=== PATIENT | male | born 1995 | race Caucasian/White ===

== ENCOUNTER 2020-03-29 17:50 | Emergency (ER) | payer OTHER ==
[2020-03-29 18:40] LABS: RED BLOOD COUNT 5.27 M/UL (4.20-5.50); WHITE BLOOD COUNT 13.6 K/UL (4.5-11.0)
[2020-03-29 18:58] LABS: BUN/CREATININE RATIO 12 (0-10)
== END 2020-03-29 19:54 | disposition home or self-care (01) ==
LOC: ER1 17:50
PROVIDERS: Physician Assistant
DX: R11.10 Vomiting, unspecified (principal); F20.9 Schizophrenia, unspecified; F17.210 Nicotine dependence, cigarettes, uncomplicated; Z79.899 Other long term (current) drug therapy
CPT/HCPCS: 80053; 81001; 83690; 85025; 87086; 99284

== ENCOUNTER 2020-10-03 21:57 | Emergency (ER) | payer OTHER ==
[2020-10-03 23:42] LABS: HEMOGLOBIN 16.1 gm/dl (14.0-17.5); RED BLOOD COUNT 5.21 M/UL (4.20-5.50); WHITE BLOOD COUNT 11.9 K/UL (4.5-11.0)
[2020-10-04 00:09] LABS: BUN/CREATININE RATIO 7 (0-10)
== END 2020-10-04 03:20 | disposition short-term general hospital (02) ==
LOC: ER1 21:57
PROVIDERS: Nurse Practitioner
DX: F29 Unspecified psychosis not due to a substance or known physiological condition (principal); Z20.822 Contact with and (suspected) exposure to COVID-19; R45.851 Suicidal ideations; F17.210 Nicotine dependence, cigarettes, uncomplicated
CPT/HCPCS: 71045; 80053; 80307; 85025; 99285; G0480; U0002

== ENCOUNTER 2020-12-17 23:05 | Emergency (ER) | payer OTHER ==
[2020-12-18 01:13] LABS: HEMOGLOBIN 17.5 gm/dl (14.0-17.5); RED BLOOD COUNT 5.69 M/UL (4.20-5.50); WHITE BLOOD COUNT 13.6 K/UL (4.5-11.0)
[2020-12-18 02:03] LABS: BUN/CREATININE RATIO 4 (0-10)
== END 2020-12-18 01:40 | disposition home or self-care (01) ==
LOC: ER1 23:05
PROVIDERS: Physician Assistant
DX: R07.89 Other chest pain (principal); R55 Syncope and collapse; E11.9 Type 2 diabetes mellitus without complications; I10 Essential (primary) hypertension; Z90.89 Acquired absence of other organs; Z88.6 Allergy status to analgesic agent; F17.200 Nicotine dependence, unspecified, uncomplicated; E87.6 Hypokalemia
CPT/HCPCS: 70360; 71045; 80053; 80307; 85025; 99284; G0480

== ENCOUNTER 2021-07-21 13:24 | Emergency (ER) | payer OTHER ==
[2021-07-21] MEDS ORDERED: CEPHALEXIN500 MG PO (14:49)
[2021-07-21] MEDS ORDERED: ANTI-ITCH28 GM TP (14:49)
== END 2021-07-21 15:05 | disposition home or self-care (01) ==
LOC: ER1 13:24
DX: L55.0 Sunburn of first degree (principal)
CPT/HCPCS: 99282